=== PATIENT | male | born 1950 | race Caucasian/White ===

== ENCOUNTER 2021-04-01 09:50 | Outpatient (REF) | payer SELFPAY ==
--- NOTE | 2021-04-01 10:16 | MHC.AU.P13 ---
Hearing Instrument Maintenance Date of Visit: 04/01/21 Right Ear: Pilates Instructor: Phonak Model: EnthuseERO Q70-M13 BTE Serial Number: [id number] Repair Warranty: Loss and Damage Warranty: Battery Size: 13 Color: BEIGE Tubing: #2 Type of Dome: MEDIUM POWER Dispensed By: [facility] Date of Fittin07/26/2013 Left Ear: Pilates Instructor: Phonak Model: BOLERO Q70-M13 BTE Serial Number: [id number] Repair Warranty: Loss and Damage Warranty: Battery Size: 13 Color: BEIGE Tubing: #2 Type of Dome: SMALL POWER Dispensed By: [facility] Date of Fittin07/26/2013 Follow-Up Summary: Patient states hearing aids have been intermittent. Cleaned, changed onofre covers, slim tubes, medium right power and small left power domes. Both aids are currently amplifying clearly. Patient is due for audiological re-evaluation in April. He will schedule as considering new amplification. Recommendations: Recommendations: Hearing instrument follow-up or maintenance as needed. Recommendations (Other): Audio RV April 2021 Signature: Provider: ZINA Clifford-HIS
== END 2021-04-01 09:51 | disposition home or self-care (01) ==
LOC: HO.HAP 09:50
PROVIDERS: Visit Provider Internal Medicine
DX: Z46.1 Encounter for fitting and adjustment of hearing aid (principal); H91.93 Unspecified hearing loss, bilateral
CPT/HCPCS: 99499

== ENCOUNTER 2021-07-04 09:57 | Outpatient (REF) | payer MEDICARE, SELFPAY ==
--- NOTE | 2021-07-10 13:00 | MHC.AU.AHA ---
Adult Audiological Evaluation Date of Visit: 07/04/21 Enrichment Specialist Used: Not Applicable Reason for Appointment: Audiologic re-evaluation to determine possible change in hearing. Testing performed last year indicated decreasing hearing thresholds and speech understanding. Previous Hearing Test Results: 04/17/2020 [facility] Mild dropping to profound sensorineural hearing loss bilaterally with 48% speech understanding for the right ear and 56% for the left ear. Ear History: History of occupational noise exposure?: Yes Medical History: Medical History: High Blood Pressure, Rheumatoid Arthritis Medication List: Humira, Methotrexate, Folic Acid, Lisinopril Hearing Instrument History- Right Ear: Administration Dean: [employer] Model: Sobresalen Q70-M13 VMTurboE Serial Number: [id number] Battery Size: 13 Repair Warranty: Dispensed By: [facility] Date of Fittin07/26/2013 Hearing Instrument History- Left Ear: Administration Dean: [employer] Model: Sobresalen Q70-M13 VMTurboE Serial Number: [id number] Battery Size: 13 Warranty: Dispensed By: [facility] Date of Fittin07/26/2013 Otoscopy: Right Ear: Unremarkable Left Ear: Unremarkable Tympanometry: Not performed at today's visit as all previous testing has indicated normal middle ear function bilaterally. Hearing Evaluation: Transducer(s) Used: Insert Earphones Bone Conduction Method: Conventional Audiometry Stimuli Used: Pure Tones Right Ear: Description of Hearing: Mild dropping to profound sensorineural hearing loss. Left Ear: Description of Hearing: Mild dropping to profound sensorineural hearing loss. Speech Recognition Threshold (SRT): Method Used: Monitored Live Voice Stimuli Used: Spondee Words Right Ear: 40 dB HL Left Ear: 45 dB HL Word Discrimination: Method: Recorded Lists Word Lists Used: NU-6 Right Ear: 76% at 80 dB HL Left Ear: 76% at 85 dB HL Most Comfortable Level (MCL): Right Ear: 80 dB HL Left Ear: 85 dB HL Comparison: Compared to the most recent evaluation: Hearing is stable. Speech understanding for both ears improved. Given Francisco's history of Rheumatoid Arthritis and chronic pain, it is possible he may experience fluctuating decrease in hearing ability if he has increased pain or may be more tired. Recommendations: Hearing aid maintenance performed today. Audiological re-evaluation in one year. Will send a reminder card. Diagnosis: Primary Diagnosis: H90.3 Bilateral Sensorineural Hearing Loss Services Performed: Comprehensive Audiological Evaluation (CPT 13604) Signature: Provider: Praveena Todd, JOSELUIS-A
== END 2021-07-04 09:58 | disposition home or self-care (01) ==
LOC: HO.SH 09:57
PROVIDERS: Visit Provider Internal Medicine
DX: H90.3 Sensorineural hearing loss, bilateral (principal)
CPT/HCPCS: 92557

== ENCOUNTER 2021-10-20 09:48 | Outpatient (REF) | payer SELFPAY | END 2021-10-20 09:49 | disposition home or self-care (01) | LOC: HO.HAP 09:48 | PROVIDERS: Visit Provider Internal Medicine | DX: Z46.1 Encounter for fitting and adjustment of hearing aid (principal) | CPT/HCPCS: V5267 ==

== ENCOUNTER 2022-01-20 11:22 | Outpatient (REF) | payer SELFPAY | END 2022-01-20 11:23 | disposition home or self-care (01) | LOC: HO.HAP 11:22 | PROVIDERS: Visit Provider Internal Medicine | DX: Z46.1 Encounter for fitting and adjustment of hearing aid (principal); H90.3 Sensorineural hearing loss, bilateral | CPT/HCPCS: 99499 ==

== ENCOUNTER 2022-10-13 08:05 | Outpatient (REF) | payer MEDICARE, SELFPAY | END 2022-10-13 08:06 | disposition home or self-care (01) | LOC: HO.SH 08:05 | PROVIDERS: Visit Provider Internal Medicine | DX: H90.3 Sensorineural hearing loss, bilateral (principal) | CPT/HCPCS: 92557; 92567 ==

== ENCOUNTER 2023-01-04 11:12 | Outpatient (REF) | payer SELFPAY | END 2023-01-04 11:13 | disposition home or self-care (01) | LOC: HO.HAP 11:12 | PROVIDERS: Visit Provider Internal Medicine | DX: Z46.1 Encounter for fitting and adjustment of hearing aid (principal); H90.3 Sensorineural hearing loss, bilateral | CPT/HCPCS: V5267 ==

== ENCOUNTER 2024-10-09 08:52 | Emergency (ER) | payer MEDICARE, SELFPAY ==
--- NOTE | ~2024-10-09 | XR_ITS ---
EXAMINATION: XR HIP, RIGHT CLINICAL INFORMATION: femur fracture. fall COMPARISON: None available. TECHNIQUE: AP pelvis, and 2 views right hip . FINDINGS: Acute transverse fracture base of the right femoral neck, abutting the intertrochanteric region. There is mild varus angulation of the right hip joint. No additional acute fractures evident. Pelvis appears intact. Left hip joint appears intact. Significant arthritic changes in the right hip joint. Milder changes left hip joint. Arthritic changes bilateral SI joints and lower lumbar spine. There is soft tissue swelling overlying the right greater trochanteric region. XR/XR hip RT w PEL1V IMPRESSION: 1. Acute fracture base of the right femoral neck, likely extending into the intertrochanteric region. There is mild displacement. There is resultant varus angulation of the joint. 2. No additional acute fracture identified. 3. Degenerative changes Electronically signed by: Bob Dyson MD 10/09/2024 12:05 PM [facility]
--- NOTE | ~2024-10-09 | CT_ITS ---
EXAMINATION: CT ABDOMEN AND PELVIS WITHOUT CONTRAST CLINICAL INFORMATION: Status post fall. Right hip pain. COMPARISON: None available. TECHNIQUE: Multidetector volumetric imaging was performed from the superior aspect of the liver through the pubic symphysis. Sagittal and coronal reformatted images were obtained on the technologist's workstation. This CT examination was performed using dose optimization techniques as appropriate, variously including the following: *Automated exposure control *Adjustment of mA and/or kV according to patient size (this includes techniques or standardized protocols for targeted exams where dose is matched to indication/reason for exam; i.e. extremities or head) *Use of iterative reconstruction technique DLP: 1045.21 mGy centimeter FINDINGS: Limited evaluation of the intra-abdominal organs and vascular structures due to lack of IV contrast. Acute cortical disruption and displaced abnormality at the right femoral neck/subcapital region. The right femoral head is well-seated in the right acetabulum. The bony pelvis is intact. The left coxofemoral joint is intact with normal alignment. No hemoperitoneum. No gross hematoma, mesenteric or retroperitoneal. No gross ascites. No perihepatic fluid. No peripancreatic fluid collections. No perisplenic fluid. Nephrolithiasis, right kidney. No gross hydronephrosis in either kidney. No perinephric fluid collections. No para-aortic fluid collections, abdominal aorta. No gross aneurysm. Moderate to large hiatal hernia. Fat-containing umbilical and periumbilical/supraumbilical hernias. No intestinal obstruction pattern. Diverticular disease, sigmoid colon. Calcified plaques in the coronary arteries. CT/CT abdomen pelvis wo IV con IMPRESSION: Acute displaced subcapital fracture, right femur. Limited evaluation of the intra-abdominal organs and vascular structures. Fleischner guidelines were followed. Electronically signed by: Adan Goddard MD 10/09/2024 12:56 PM EST
--- NOTE | ~2024-10-09 | CT_ITS ---
EXAMINATION: CT HEAD WITHOUT CONTRAST CLINICAL INFORMATION: Fall, pain. COMPARISON: None available. TECHNIQUE: Contiguous axial imaging was performed from the skull base to vertex without intravenous administration of contrast. This CT examination was performed using dose optimization techniques as appropriate, variously including the following: *Automated exposure control *Adjustment of mA and/or kV according to patient size (this includes techniques or standardized protocols for targeted exams where dose is matched to indication/reason for exam; i.e. extremities or head) *Use of iterative reconstruction technique FINDINGS: There is no evidence of intracranial hemorrhage or extra-axial fluid collection. There is no mass effect, or edema. No CT evidence of acute territorial infarct. Ventricles, sulci, and cisterns are normal in size and configuration for patient age. No hydrocephalus. No midline shift. Negative hyperdense MCA sign. Negative insular ribbon sign. 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 There are mild to moderate foci of hypoattenuation in the supratentorial white matter, keeping with small vessel ischemic change. Atheromatous calcification of the bilateral carotid siphons and V4 segments vertebral arteries bilaterally. Globes and orbital contents image normally. There have been prior lens replacements. No extracranial soft tissue abnormalities. Chronic appearing partial opacification right maxillary sinus. The remainder of the paranasal sinuses, mastoid air cells, and tympanic cavities are normally aerated. No suspicious bony abnormalities. CT/CT head/brain wo IV con IMPRESSION: 1. No acute intracranial abnormality. No fracture is evident. 2. Chronic findings as discussed. Electronically signed by: Bob Dyson MD 10/09/2024 12:40 PM [facility]
--- NOTE | ~2024-10-09 | CT_ITS ---
EXAMINATION: CT CERVICAL SPINE WITHOUT CONTRAST CLINICAL INFORMATION: Status post fall. COMPARISON: None available. TECHNIQUE: Contiguous axial images through the cervical spine using 3 mm collimation with bone and soft tissue algorithm. Sagittal and coronal reformatted images acquired. This CT examination was performed using dose optimization techniques as appropriate, variously including the following: *Automated exposure control *Adjustment of mA and/or kV according to patient size (this includes techniques or standardized protocols for targeted exams where dose is matched to indication/reason for exam; i.e. extremities or head) *Use of iterative reconstruction technique DLP: 519.86 mGy centimeter. FINDINGS: Cortical irregularity/disruption involving the left facet of C6. No gross malalignment. Cortical irregularity in the right lamina of C6 best seen on the axial series. Craniocervical junction is intact. Multilevel marginal osteophyte formation, subchondral cyst formation decreased disc height from C3 to C7. No gross malalignment between the vertebral bodies or the facet joints. C1 is intact. C2 is intact. C3 is intact. C4 is intact. C5 is intact. C7 is intact. No gross prevertebral compartment hematoma. Tympanic cavities and mastoid air cells are aerated. CT/CT cervical spine wo IV con IMPRESSION: Concerning acute impacted fracture left facet of C6 and nondisplaced fracture right lamina of C6. Recommend further imaging evaluation with noncontrast MRI cervical spine. Findings communicated to the emergency department physician patient support assistant at 12:45 PM on October 09, 2024. Fleischner guidelines were followed. Electronically signed by: Adan oGddard MD 10/09/2024 12:45 PM [facility]
--- NOTE | ~2024-10-09 | CT_ITS ---
EXAMINATION: CT CHEST WITHOUT CONTRAST CLINICAL INFORMATION: Fall. No further clinical information provided. COMPARISON: None available. TECHNIQUE: Multidetector volumetric CT imaging of the chest was done. Axial MIP volume rendering provided. Sagittal and coronal reformatted images were obtained. This CT examination was performed using dose optimization techniques as appropriate, variously including the following: *Automated exposure control *Adjustment of mA and/or kV according to patient size (this includes techniques or standardized protocols for targeted exams where dose is matched to indication/reason for exam; i.e. extremities or head) *Use of iterative reconstruction technique FINDINGS: LUNGS: -Mild dependent atelectasis is present. -Lungs otherwise clear. No contusions or consolidations. -No effusions or pneumothorax. -There are a few calcified granulomas scattered in both lungs. -There are are a few subtle calcified pleural plaques. MEDIASTINUM: -Normal thyroid. -Top normal heart size. No pericardial effusion. -Aorta normal in caliber. -Main pulmonary artery normal. -No adenopathy. -Large paraesophageal hiatus hernia the retrocardiac region. CORONARY ARTERY CALCIFICATION: Moderate three-vessel calcification. PLEURA: Scattered calcified pleural plaques. AXILLA: No lymphadenopathy. UPPER ABDOMEN: Refer to the dedicated CT abdomen and pelvis. OSSEOUS STRUCTURES: -No acute fractures are evident. -Old healed fracture right anterolateral fourth rib. -Degenerative changes in the right shoulder joint and throughout the spine. No vertebral fractures. -There are flowing anterior syndesmophytes present. CT/CT chest wo IV con IMPRESSION: 1. No acute posttraumatic abnormalities. No fractures seen. 2. Scattered small calcified pleural plaques present. Scattered granulomata within the lung parenchyma. 3. No pneumothorax, effusion, or acute lung disease. 4. Large paraesophageal hiatus hernia. Electronically signed by: Bob Dyson MD 10/09/2024 01:07 PM [facility] [place]
[2024-10-09 09:01] VITALS: BP 184/99; PULSE 83; O2SAT 96
[2024-10-09 09:03] VITALS: BMI 30.5
[2024-10-09 09:32] VITALS: BP 171/91; PULSE 78; RESP 16; TEMP 36.4; O2SAT 93
--- NOTE | 2024-10-09 10:17 | ED.GENADULT ---
HPI - General Adult General Chief complaint: Fall Stated complaint: SLIP/FALL WHILE SHOVELING,R HIP PAIN ER EMS Time Seen by Provider: 10/09/24 09:27 Source: patient Mode of arrival: ambulatory Limitations: no limitations History of Present Illness ED Provider: Marques Santana HPI narrative: 74-year-old male with past medical history of rheumatoid arthritis presents to ED for right hip pain due to fall. Patient states while walking over to shovel his neighbors snow he slipped on black ice and fell directly on his back in the right hip. Patient denies hitting head or any loss of consciousness. Patient's main complaint of right hip pain. Patient denies any chest pain, shortness of breath, abdominal pain, dizziness, headache, nausea, or vomiting. Related Data Allergies Allergy/AdvReac Type Severity Reaction Status Date / Time No Known Allergies Allergy Verified 10/09/24 09:05 Review of Systems Review of Systems: Right hip pain Yes all other systems are reviewed and are negative Physical Exam ED Vital Signs: Vital Signs - 24 hr 10/09/24 09:03 10/09/24 09:32 10/09/24 12:00 Temperature 97.6 F 98.2 F Pulse Rate 78 80 Respiratory Rate 16 18 Blood Pressure 171/91 H 173/88 H Pulse Oximetry 93 94 Oxygen Delivery Method Room Air Room Air Room Air 10/09/24 15:39 Temperature 98.2 F Pulse Rate 80 Respiratory Rate 18 Blood Pressure 173/88 H Pulse Oximetry 94 Oxygen Delivery Method Room Air BMI result Body Mass Index 30.5 Const General: cooperative, healthy appearing, comfortable, no acute distress, well developed, alert, awake and Physically active Orientation/consciousness: patient oriented x3 HENMT Head: Yes normal to inspection, Yes No palpable skull fracture present, Yes normocephalic and Yes atraumatic Ears: hearing grossly normal bilaterally, external ears normal, TM's normal bilaterally, TM normal on the right, TM normal on the left, EAC's normal, mastoids normal and no periauricular adenopathy Throat: Yes posterior oropharynx normal, Yes tonsils normal and Yes uvula midline Eyes General: appearance normal, both eyes and all related structures Visual Mcknight: normal visual mcknight by confrontation Alignment and Position: alignment normal Periorbital: periorbital findings normal Eyelids: Yes eyelids normal Conjunctivae: conjunctivae normal Sclerae: sclerae normal Corneas: corneas normal Pupils: Equal, round and reactive pupils present EOM: EOMs intact bilaterally Direct Ophthalmoscopy: normal light reflex Neck Neck: Yes normal visual inspection, Yes full ROM, Yes no lymphadenopathy, Yes no meningeal signs, Yes trachea midline, Yes supple, No anterior neck swelling and No tender Chest Chest palpation & inspection: normal inspection of the chest and normal palpation of entire chest wall Resp Effort & Inspection: normal respiratory effort and able to speak in complete sentences Auscultation: clear to auscultation bilaterally Cardio Jugular venous distension: no JVD Heart sounds: S1 normal heart sound present and S2 normal heart sound present GI Inspection: Yes normal to inspection Palpation (GI): Soft to palpation, not firm, nontender, no guarding and not rigid General: Yes no CVA tenderness Back/Spine/Pelvis Back: no CVA tenderness and No back tenderness Skin General skin exam: no rashes or lesions noted, elasticity normal and turgor normal Neuro General: patient oriented x3, gait normal, tone normal, moves all extremities, Normal light touch and pain sensation, no meningeal signs, no focal motor deficits, CN's II-XI intact bilaterally and normal sensation to monofilament Cranial nerves: Yes Equal, round and reactive pupils present Extrem General: Yes normal to inspection, Yes full ROM and Yes capillary refill normal Upper/lower leg/hip images: 1. Positive for tenderness on palpation. Negative for any ecchymosis or crepitus or deformity. Negative for internal external rotation of right lower extremity but does have pain on range of motion. Vascular neuro exam is Psych Appearance: grossly normal, well kempt and not disheveled Medications Administered Discontinued Medications Generic Name Dose Route Start Last Admin Trade Name Jessica PRN Reason Stop Dose Admin Acetaminophen 975 mg 10/09/24 10:03 10/09/24 10:32 Acetaminophen 325 Mg Tablet PO 10/09/24 10:04 975 mg ONCE ONE Administration Famotidine 20 mg 10/09/24 13:05 10/09/24 13:21 Famotidine/Pf 20 Mg/2 Ml Vial IVPUSH 10/09/24 13:06 20 mg ONCE ONE Administration Morphine Sulfate 2 mg 10/09/24 13:20 10/09/24 13:24 Morphine Sulfate 2 Mg/Ml Cartridge IVPUSH 10/09/24 13:21 2 mg ONCE ONE Administration Protocol Morphine Sulfate 4 mg 10/09/24 15:03 10/09/24 15:09 Morphine Sulfate 4 Mg/Ml Cartridge IVPUSH 10/09/24 15:04 4 mg ONCE ONE Administration Protocol Medical Decision Making Medical Decision Making [facility] Narrative: [age] male presents to ED for mechanical fall slipped on ice swelling to right hip. Due to mechanism we will send patient for head neck chest abdomen pelvis hip imaging. Patient only be given Tylenol for pain. Patient not in distress. Patient denies any dizziness, nausea, vomiting, chest pain or headache abdominal pain before falling. Patient states he slipped on ice outside 12:53pm: Patient has positive right hip fracture and also C6 fracture. Patient has no neuro deficits. Upper and lower extremity motor neuro vascular exam intact. Head CT scan normal. Awaiting chest and abdomen CT scan. Family made aware we will have to contact [facility] trauma service. Labs are normal and stable. Pain is controlled just with Tylenol. 2:36pm: Case accepted by Dr. Dozier of [facility] trauma service. He states patient should be sent to the ED for re-evaluation. Patient GCS 15. Negative for any signs of any neuro deficits. Patient and family agreeable to plan. Patient received morphine for pain Differential Diagnosis Differential Diagnoses: The differential diagnosis associated with the presentation includes (Cervical spine fracture hip fracture) Admission/Observation Consideration of admission/observation: Escalation of care including admission/observation considered Consult Healthcare Provider Management of the patient was discussed with: Senior Net Software Engineer (Dr. Dozier, [facility] Trauma Surgeon) Lab Data [facility] Lab Attestation statement: I reviewed the patient's lab results. 10/09/24 12:03 10/09/24 12:03 Labs: Lab Results 10/09/24 Range/Units 12:03 WBC 12.1 H (4.8-10.8) X10*3/uL RBC 4.57 L (4.60-5.80) X10*6/uL Hgb 14.9 (14.0-18.0) g/dl Hct 43.1 (42.0-52.0) % MCV 94.3 (80.0-98.0) fL MCH 32.6 (27.0-33.0) pg MCHC 34.6 (31.0-36.0) g/dl RDW 14.4 (11.0-16.0) % Plt Count 161 (160-400) X10*3/uL MPV 9.0 L (9.4-12.4) fL Immature Gran % (Auto) 0.4 (0.0-0.4) % Neut % (Auto) 80.5 H (45-73) % Lymph % (Auto) 11.4 L (20-40) % [place] % (Auto) 7.3 (2-11) % Eos % (Auto) 0.2 (0-4) % Baso % (Auto) 0.2 (0-2) % Lymph # (Auto) 1.4 (1.2-4.9) X10*3/uL [place] # (Auto) 0.9 (0.1-1.2) X10*3/uL Eos # (Auto) 0.0 (0.0-0.4) X10*3/uL Baso # (Auto) 0.0 (0.0-0.2) X10*3/uL Abs Immat Gran (auto) 0.05 H (0.00-0.03) X10*3/uL Absolute Neuts (auto) 9.7 H (2.0-8.3) x10*3/uL Absolute Nucleated RBC 0.000 (0.0-0.012) X10*3/uL Nucleated RBC % (auto) 0.0 (0.0-0.2) /100WBC Sodium 139 (135-145) mmol/L Potassium 4.8 (3.3-5.1) mmol/L Chloride 107 (96-108) mmol/L Carbon Dioxide 24 (22-29) mmol/L Anion Gap 13 (12-20) BUN 23 H (9-16) mg/dL Creatinine 0.87 (0.5-1.4) mg/dL Estim Creat Clear Calc 94.8 Estimated GFR > 60 Random Glucose 103 (60-115) mg/dL Calcium 9.7 (8.4-10.2) mg/dL Total Bilirubin 1.1 H (0.0-1.0) mg/dL AST 26 (5-37) U/L ALT 21 (0-40) U/L Alkaline Phosphatase 76 (39-117) U/L Total Protein 7.3 (6.5-8.0) g/dL Albumin 4.0 (3.5-5.0) g/dL Independent Interpretation I performed an independent interpretation of an: Plain X-Ray and CT Scan Radiology Impression Discussion of test interpretation with radiology: I have reviewed the radiologist's reading. Independent Historian Clinical information obtained from an independent historian. History obtained from or confirmed by: Other (patient) Patient: Francisco Chaparro MR#: [id number] : 1950 Acct:[id number] Age/Sex: 74 / M ADM Date: 10/09/24 Loc: HO.ED Attending Dr: Ordering Physician: Marques Santana Date of Service: 10/09/24 Procedure(s): XR hip RT w PEL1V Accession Number(s): [id number] cc: Marques Santana; Mandeep Garcia MD~ EXAMINATION: XR HIP, RIGHT CLINICAL INFORMATION: femur fracture. fall COMPARISON: None available. TECHNIQUE: AP pelvis, and 2 views right hip . FINDINGS: Acute transverse fracture base of the right femoral neck, abutting the intertrochanteric region. There is mild varus angulation of the right hip joint. No additional acute fractures evident. Pelvis appears intact. Left hip joint appears intact. Significant arthritic changes in the right hip joint. Milder changes left hip joint. Arthritic changes bilateral SI joints and lower lumbar spine. There is soft tissue swelling overlying the right greater trochanteric region. XR/XR hip RT w PEL1V IMPRESSION: 1. Acute fracture base of the right femoral neck, likely extending into the intertrochanteric region. There is mild displacement. There is resultant varus angulation of the joint. 2. No additional acute fracture identified. 3. Degenerative changes Electronically signed by: Bob Dyson MD 10/09/2024 12:05 PM [facility] [place]ict[place] By: Bob Dyson MD Signed By: <Electronically signed by Bob Dyson MD in OV> 10/09/24 1205 DD/ 1034 TD/TT: 10/09/24 1154 Solar Project Coordination Specialist: [place] [id number] CT Scan Report Signed Patient: Francisco Chaparro MR#: [id number] : 1950 Acct:[id number] Age/Sex: 74 / M ADM Date: 10/09/24 Loc: HO.ED Attending Dr: Ordering Physician: Marqeus Santana Date of Service: 10/09/24 Procedure(s): CT cervical spine wo IV con Accession Number(s): [id number] cc: Marques Santana; Mandeep Garcia MD~ Report Number: [id number]: Total DLP = 519.86 mGy-cm EXAMINATION: CT CERVICAL SPINE WITHOUT CONTRAST CLINICAL INFORMATION: Status post fall. COMPARISON: None available. TECHNIQUE: Contiguous axial images through the cervical spine using 3 mm collimation with bone and soft tissue algorithm. Sagittal and coronal reformatted images acquired. This CT examination was performed using dose optimization techniques as appropriate, variously including the following: *Automated exposure control *Adjustment of mA and/or kV according to patient size (this includes techniques or standardized protocols for targeted exams where dose is matched to indication/reason for exam; i.e. extremities or head) *Use of iterative reconstruction technique DLP: 519.86 mGy centimeter. FINDINGS: Cortical irregularity/disruption involving the left facet of C6. No gross malalignment. Cortical irregularity in the right lamina of C6 best seen on the axial series. Craniocervical junction is intact. Multilevel marginal osteophyte formation, subchondral cyst formation decreased disc height from C3 to C7. No gross malalignment between the vertebral bodies or the facet joints. C1 is intact. C2 is intact. C3 is intact. C4 is intact. C5 is intact. C7 is intact. No gross prevertebral compartment hematoma. Tympanic cavities and mastoid air cells are aerated. CT/CT cervical spine wo IV con IMPRESSION: Concerning acute impacted fracture left facet of C6 and nondisplaced fracture right lamina of C6. Recommend further imaging evaluation with noncontrast MRI cervical spine. Findings communicated to the emergency department physician pizza hut assistant at 12:45 PM on October 09, 2024. Fleischner guidelines were followed. Electronically signed by: Adan Goddard MD 10/09/2024 12:45 PM [facility] [place] Dictated By: Adan Joe MD Signed By: <Electronically signed by Adan Melton MD in OV> 02/03/25 1245 DD/ 1130 TD/TT: 10/09/24 1216 Solar Project Coordination Specialist: Report Number: [id number]: Total DLP = 1065.69 mGy-cm EXAMINATION: CT ABDOMEN AND PELVIS WITHOUT CONTRAST CLINICAL INFORMATION: Status post fall. Right hip pain. COMPARISON: None available. TECHNIQUE: Multidetector volumetric imaging was performed from the superior aspect of the liver through the pubic symphysis. Sagittal and coronal reformatted images were obtained on the technologist's workstation. This CT examination was performed using dose optimization techniques as appropriate, variously including the following: *Automated exposure control *Adjustment of mA and/or kV according to patient size (this includes techniques or standardized protocols for targeted exams where dose is matched to indication/reason for exam; i.e. extremities or head) *Use of iterative reconstruction technique DLP: 1045.21 mGy centimeter FINDINGS: Limited evaluation of the intra-abdominal organs and vascular structures due to lack of IV contrast. Acute cortical disruption and displaced abnormality at the right femoral neck/subcapital region. The right femoral head is well-seated in the right acetabulum. The bony pelvis is intact. The left coxofemoral joint is intact with normal alignment. No hemoperitoneum. No gross hematoma, mesenteric or retroperitoneal. No gross ascites. No perihepatic fluid. No peripancreatic fluid collections. No perisplenic fluid. Nephrolithiasis, right kidney. No gross hydronephrosis in either kidney. No perinephric fluid collections. No para-aortic fluid collections, abdominal aorta. No gross aneurysm. Moderate to large hiatal hernia. Fat-containing umbilical and periumbilical/supraumbilical hernias. No intestinal obstruction pattern. Diverticular disease, sigmoid colon. Calcified plaques in the coronary arteries. CT/CT abdomen pelvis wo IV con IMPRESSION: Acute displaced subcapital fracture, right femur. Limited evaluation of the intra-abdominal organs and vascular structures. Fleischner guidelines were followed. Electronically signed by: Adan Goddard MD 10/09/2024 12:56 PM [facility] [place] Dictated By: Adan Joe MD Signed By: <Electronically signed by Adan Melton MD in OV> 10/09/24 1256 DD/ 1130 TD/TT: 10/09/24 1214 Solar Project Coordination Specialist: [address] [id number] [address] Scan Report Signed Patient: Francisco Chaparro MR#: [id number] : 1950 Acct:[id number] Age/Sex: 74 / M ADM Date: 10/09/24 Loc: HO.ED Attending Dr: Ordering Physician: Marques Santana Date of Service: 10/09/24 Procedure(s): CT chest wo IV con Accession Number(s): [id number] cc: Marques Santana; Mandeep Garcia MD~ Report Number: [id number]: Total DLP = 398.11 mGy-cm EXAMINATION: CT CHEST WITHOUT CONTRAST CLINICAL INFORMATION: Fall. No further clinical information provided. COMPARISON: None available. TECHNIQUE: Multidetector volumetric CT imaging of the chest was done. Axial MIP volume rendering provided. Sagittal and coronal reformatted images were obtained. This CT examination was performed using dose optimization techniques as appropriate, variously including the following: *Automated exposure control *Adjustment of mA and/or kV according to patient size (this includes techniques or standardized protocols for targeted exams where dose is matched to indication/reason for exam; i.e. extremities or head) *Use of iterative reconstruction technique FINDINGS: LUNGS: -Mild dependent atelectasis is present. -Lungs otherwise clear. No contusions or consolidations. -No effusions or pneumothorax. -There are a few calcified granulomas scattered in both lungs. -There are are a few subtle calcified pleural plaques. MEDIASTINUM: -Normal thyroid. -Top normal heart size. No pericardial effusion. -Aorta normal in caliber. -Main pulmonary artery normal. -No adenopathy. -Large paraesophageal hiatus hernia the retrocardiac region. CORONARY ARTERY CALCIFICATION: Moderate three-vessel calcification. PLEURA: Scattered calcified pleural plaques. AXILLA: No lymphadenopathy. UPPER ABDOMEN: Refer to the dedicated CT abdomen and pelvis. OSSEOUS STRUCTURES: -No acute fractures are evident. -Old healed fracture right anterolateral fourth rib. -Degenerative changes in the right shoulder joint and throughout the spine. No vertebral fractures. -There are flowing anterior syndesmophytes present. CT/CT chest wo IV con IMPRESSION: 1. No acute posttraumatic abnormalities. No fractures seen. 2. Scattered small calcified pleural plaques present. Scattered granulomata within the lung parenchyma. 3. No pneumothorax, effusion, or acute lung disease. 4. Large paraesophageal hiatus hernia. Electronically signed by: Bbo Dyson MD 10/09/2024 01:07 PM [facility] [place] Dictated By: Bob Dyson MD Signed By: <Electronically signed by Bob Dyson MD in OV> 10/09/24 1307 DD/ 1130 TD/TT: 10/09/24 1225 Solar Project Coordination Specialist: Prescription Management I considered prescription management with: Antibiotic Critical Care Time Critical Care Time Critical Care Time: Yes Total Critical Care Time: 60 Attestation: Patient is positive for hip fracture and C6 fracture. [facility] surgeon was consulted Dr. Dozier recommend patient be transferred to [facility] ED. patient's GC 15. Negative for any neuro deficits. Patient given morphine for pain. Patient transferred to [facility] Discharge Plan Discharge Clinical Impression: Femoral neck fracture, C6 cervical fracture Patient Disposition: Xfer Acute Care Hospital Transfer Details: [facility] Emergency Department Referrals: Mandeep Garcia MD [Primary Care Provider] - Interventions: Acute Care Transfer Worksheet (ED) Last Done: 10/09/24 15:39 Discharge Date/Time: 10/09/24 15:40 Print Language: Macedonian
[2024-10-09] MEDS: Acetaminophen 325 MG TABLET 975 MG PO (10:32)
[2024-10-09 12:00] VITALS: BP 173/88; PULSE 80; RESP 18; TEMP 36.8; O2SAT 94
[2024-10-09 12:09] LABS: MANUAL DIFF FLAG NO
[2024-10-09 12:10] LABS: Basophils Percent Auto 0.2 % (0-2); Eosinophils Percent Auto 0.2 % (0-4); Hematocrit 43.1 % (42.0-52.0); Hemoglobin 14.9 g/dl (14.0-18.0); Imm Gran Abs Auto 0.05 X10*3/uL (0.00-0.03); Imm Gran Pct Auto 0.4 % (0.0-0.4); Lymphocytes Absolute Auto 1.4 X10*3/uL (1.2-4.9); Lymphocytes Percent Auto 11.4 % (20-40); Mean Corpuscular HGB Conc 34.6 g/dl (31.0-36.0); Mean Corpuscular Hemoglobin 32.6 pg (27.0-33.0); Mean Corpuscular Volume 94.3 fL (80.0-98.0); Monocytes Absolute Auto 0.9 X10*3/uL (0.1-1.2); Monocytes Percent Auto 7.3 % (2-11); Neutrophils Absolute Auto 9.7 x10*3/uL (2.0-8.3); Neutrophils Percent Auto 80.5 % (45-73); Platelet Count 161 X10*3/uL (160-400); Red Blood Count 4.57 X10*6/uL (4.60-5.80); Red Cell Distribution Width 14.4 % (11.0-16.0); White Blood Count 12.1 X10*3/uL (4.8-10.8)
[2024-10-09 12:29] LABS: Alanine Aminotransferase 21 U/L (0-40); Alkaline Phosphatase 76 U/L (39-117); Anion Gap 13 (12-20); Aspartate Amino Transferase 26 U/L (5-37); Bilirubin Total 1.1 mg/dL (0.0-1.0); Blood Urea Nitrogen 23 mg/dL (9-16); Calcium 9.7 mg/dL (8.4-10.2); Carbon Dioxide 24 mmol/L (22-29); Chloride 107 mmol/L (96-108); Creatinine Clr Calc Pharmacy 94.8; Estimated Glomerular Filt Rate > 60; Glucose Random 103 mg/dL (60-115); Potassium 4.8 mmol/L (3.3-5.1); Sodium 139 mmol/L (135-145); Total Protein 7.3 g/dL (6.5-8.0)
[2024-10-09] MEDS: Famotidine/PF 20 MG/2 ML VIAL IVPUSH (13:21)
[2024-10-09] MEDS: Morphine Sulfate 2 MG/ML CARTRIDGE IVPUSH (13:24)
[2024-10-09] MEDS: Morphine Sulfate 4 MG/ML CARTRIDGE IVPUSH (15:09)
[2024-10-09 15:39] VITALS: BP 173/88; PULSE 80; RESP 18; TEMP 36.8; O2SAT 94
== END 2024-10-09 15:40 | disposition short-term general hospital (02) ==
PROVIDERS: Physician Assistant; Emergency Provider Emergency Medicine; PCP Internal Medicine
DX: S72.001A Fracture of unspecified part of neck of right femur, initial encounter for closed fracture (principal); S12.500A Unspecified displaced fracture of sixth cervical vertebra, initial encounter for closed fracture; M54.2 Cervicalgia; M25.551 Pain in right hip; R10.2 Pelvic and perineal pain; R51.9 Headache, unspecified; R07.89 Other chest pain; X58.XXXA Exposure to other specified factors, initial encounter; Y93.H1 Activity, digging, shoveling and raking; Y92.480 Sidewalk as the place of occurrence of the external cause; Z79.899 Other long term (current) drug therapy; Y99.8 Other external cause status
CPT/HCPCS: 36415; 70450; 71250; 72125; 73502; 74176; 80053; 85025; 96374; 96375; 96376; 99285; J2270